=== PATIENT | female | born 1960 | race Two or more races ===

== ENCOUNTER 2020-12-01 19:25 | Inpatient (IN) | payer OTHER ==
[2020-12-01 19:00] VITALS: BP 141/101
[~2020-12-01 19:25] MED LIST: ASPI-1198 PO; ATOR40TA71 PO; BUME1TAB6 PO; FOLI-130 PO; HYDR100T28 PO; INSU100V SQ; LACT30L PO; LISI-618 PO; MEGE400O5 PO; PANT40TA54 PO; SODI650T PO
[2020-12-01 19:52] VITALS: BP 129/61
[2020-12-01] MEDS ORDERED: DiphenhydrAMINE HCL 25 MG CAPSULE PO PRN (21:15)
[2020-12-01] MEDS ORDERED: PANTOPRAZOLE SODIUM 40 MG DR TABLET PO SCH (21:15)
[2020-12-01] MEDS ORDERED: LACTULOSE 20 GM/30 ML SOLUTION UDCUP PO PRN (21:15)
[2020-12-01] MEDS ORDERED: BISACODYL 10 MG RECTAL RECTAL SUPPOSITORY PR PRN (21:15)
[2020-12-01] MEDS ORDERED: ACETAMINOPHEN 650 MG/20.3 ML SOLUTION UDCUP PO PRN (21:15)
[2020-12-01] MEDS ORDERED: MAGNESIUM HYDROXIDE SUSPENSION 30 ML UDCUP PO PRN (21:15)
[2020-12-01] MEDS ORDERED: SODIUM CHLORIDE 0.9% 500 ML IV ONE (21:49)
[2020-12-01] MEDS: NYSTATIN 500,000 UNITS/5 ML SUSPENSION UDCUP PO SCH (21:54)
[2020-12-01] MEDS: BENZOCAINE/MENTHOL LOZENGE PO PRN (21:55)
[2020-12-01] MEDS ORDERED: NAFCILLIN SODIUM 1 GM in DEXTROSE 5%-WATER 50 ML IV SCH (22:00)
[2020-12-01] MEDS ORDERED: MIRTAZAPINE 15 MG TABLET PO SCH (22:00)
[2020-12-01] MEDS: DOCUSATE SODIUM 100 MG CAPSULE PO SCH (22:28)
[2020-12-01] MEDS: TraZODone HCL 50 MG TABLET PO SCH (22:28)
[2020-12-01] MEDS: TRIAMCINOLONE 0.1% 15 GM CREAM TP SCH (22:36)
[2020-12-01] MEDS: ONDANSETRON HCL 4 MG TABLET PO PRN (22:37)
[2020-12-01] MEDS: SENNA 187 MG TABLET PO SCH (22:37)
[2020-12-02 00:55] VITALS: BP 127/72
[2020-12-02] MEDS: OxyCODONE HCL 5 MG IR TABLET PO PRN (05:10)
[2020-12-02] MEDS: BENZOCAINE/MENTHOL LOZENGE PO PRN (05:18)
[2020-12-02 08:05] VITALS: BP 142/74
[2020-12-02] MEDS: ACETAMINOPHEN 325 MG TABLET PO PRN ×3 (08:13→23:49)
[2020-12-02] MEDS: DOCUSATE SODIUM 100 MG CAPSULE PO SCH ×2 (08:14→21:00)
[2020-12-02] MEDS: TRIAMCINOLONE 0.1% 15 GM CREAM TP SCH ×2 (08:15→21:41)
[2020-12-02] MEDS: EPOETIN ALFA 10,000 UNITS/ML VIAL SQ SCH (08:15)
[2020-12-02] MEDS: CHLORHEXIDINE GLUCONATE 4% 118 ML TOPICAL LIQUID TP SCH (08:15)
[2020-12-02] MEDS: CAMPHOR/MENTHOL 222 ML LOTION TP SCH ×3 (08:15→21:41)
[2020-12-02] MEDS: NYSTATIN 500,000 UNITS/5 ML SUSPENSION UDCUP PO SCH ×2 (09:00→21:00)
[2020-12-02] MEDS ORDERED: FOLIC ACID 1 MG TABLET PO SCH (09:00)
[2020-12-02 09:18] LABS: EOSINOPHILS % (AUTO) 5.8 % (1.0-6.0); HEMATOCRIT 22.7 % (36-46); HEMOGLOBIN 7.3 g/dL (12.0-16.0); LYMPHOCYTES # (AUTO) 0.3 K/uL (1.0-4.8); LYMPHOCYTES % (AUTO) 58.9 % (22.0-44.0); MEAN CORPUSCULAR HGB CONC 32.3 G/dL (31.0-37.0); MEAN CORPUSCULAR VOLUME 81 fL (80-100); MONOCYTES % (AUTO) 0.9 % (2.0-9.0); NEUTROPHILS # (AUTO) 0.2 K/uL (1.8-7.7); NEUTROPHILS % (AUTO) 34.4 % (40.0-70.0); PLATELET COUNT (AUTO) 55 K/uL (150-450); RED BLOOD CELL COUNT(AUTO) 2.81 MIL/uL (4.00-5.20)
[2020-12-02 09:30] VITALS: BP 135/74
[2020-12-02 09:50] LABS: LACTIC ACID 0.8 mmol/L (0.4-2.0)
[2020-12-02 09:59] LABS: HEMOGLOBIN A1C 5.6 % (3.8-5.6)
[2020-12-02 10:04] LABS: ALBUMIN 1.8 g/dL (3.4-5.0); BILIRUBIN,TOTAL 0.3 mg/dL (0.1-1.0); CALCIUM, TOTAL 8.8 mg/dL (8.8-10.5); CHOL/HDL RATIO 3.3 (3.9-5.7); CREATININE 4.89 mg/dL (0.60-1.30); FREE T4 (FREE THYROXINE) 1.54 ng/dL (0.76-1.46); POTASSIUM 4.2 mmol/L (3.5-5.1); THYROID STIMULATING HORMONE 0.81 uIU/mL (0.36-3.74); TOTAL PROTEIN, SERUM 5.7 g/dL (6.4-8.2)
[2020-12-02 10:15] LABS: URIC ACID 4.6 mg/dL (2.6-7.2)
[2020-12-02] MEDS: ONDANSETRON HCL 4 MG TABLET PO PRN (10:32)
[2020-12-02] MEDS: MIDODRINE HCL 5 MG TABLET PO SCH ×3 (10:33→21:00)
[2020-12-02] MEDS: PARICALCITOL 5 MCG/1 ML VIAL IVP SCH (10:34)
[2020-12-02 12:16] VITALS: BP 140/74
[2020-12-02] MEDS ORDERED: DEXTROSE 50%-WATER 25 GM/50 ML SYRINGE IVP PRN (16:00)
[2020-12-02 16:18] VITALS: BP 118/77
[2020-12-02] MEDS ORDERED: PIPERACILLIN SODIUM/TAZOBACTAM 0.75 GM in DEXTROSE 5%-WATER 50 ML IV PRN (17:45)
[2020-12-02] MEDS: MethylPREDNISolone SOD SUCC 125 MG/2 ML VIAL IVP SCH ×2 (18:46→23:48)
[2020-12-02] MEDS: PIPERACILLIN SODIUM/TAZOBACTAM 2.25 GM in DEXTROSE 5%-WATER 50 ML IV SCH (20:01)
[2020-12-02] MEDS ORDERED: SODIUM CHLORIDE 0.9% 250 ML IV ONE (20:02)
[2020-12-02 20:12] VITALS: BP 141/76
[2020-12-02 20:14] LABS: C-REACTIVE PROTEIN QUANT 27.94 mg/dL (0.00-0.30)
[2020-12-02] MEDS: SENNA 187 MG TABLET PO SCH (21:00)
[2020-12-02] MEDS: LISINOPRIL 20 MG TABLET PO SCH (21:39)
[2020-12-02] MEDS: FLUCONAZOLE 100 MG/NACL ISOOSM 50 ML IV SCH (21:40)
[2020-12-02] MEDS: BUMETANIDE 1 MG TABLET PO SCH (21:40)
[2020-12-02] MEDS: TraZODone HCL 50 MG TABLET PO SCH (21:40)
[2020-12-02] MEDS: INSULIN REGULAR, HUMAN 100 UNITS/ML SQ PRN (21:53)
[2020-12-03 00:27] VITALS: BP 136/77
[2020-12-03 03:58] VITALS: BP 129/78
[2020-12-03] MEDS: PIPERACILLIN SODIUM/TAZOBACTAM 2.25 GM in DEXTROSE 5%-WATER 50 ML IV SCH ×3 (04:19→20:07)
[2020-12-03] MEDS: ACETAMINOPHEN 325 MG TABLET PO PRN ×4 (06:00→22:32)
[2020-12-03] MEDS: MethylPREDNISolone SOD SUCC 125 MG/2 ML VIAL IVP SCH ×3 (06:03→17:43)
[2020-12-03] MEDS: INSULIN REGULAR, HUMAN 100 UNITS/ML SQ PRN ×3 (06:04→20:13)
[2020-12-03 07:24] VITALS: BP 132/73
[2020-12-03 08:11] LABS: MEAN CORPUSCULAR HEMOGLOBIN 26.1 pg (26.0-34.0); MEAN CORPUSCULAR VOLUME 81 fL (80-100)
[2020-12-03 08:37] LABS: HEMATOCRIT 24.8 % (36-46); MEAN CORPUSCULAR HGB CONC 32.2 G/dL (31.0-37.0); PLATELET COUNT (AUTO) 34 K/uL (150-450); RED BLOOD CELL COUNT(AUTO) 3.05 MIL/uL (4.00-5.20); RED CELL DISTRIBUTION WIDTH 19.1 % (11.5-14.5)
[2020-12-03] MEDS: ASPIRIN 81 MG CHEWABLE TABLET PO SCH (09:00)
[2020-12-03] MEDS ORDERED: -POST HEMODIALYSIS NOTE- MISC SCH (09:00)
[2020-12-03] MEDS ORDERED: ATORVASTATIN CALCIUM 40 MG TABLET PO SCH (09:00)
[2020-12-03] MEDS: DOCUSATE SODIUM 100 MG CAPSULE PO SCH ×2 (09:00→20:08)
[2020-12-03] MEDS: VITAMIN B COMP/VIT C/FOLIC ACID CAPSULE PO SCH (09:35)
[2020-12-03] MEDS: FOLIC ACID 1 MG TABLET PO SCH (09:36)
[2020-12-03] MEDS: LISINOPRIL 20 MG TABLET PO SCH ×2 (09:36→20:07)
[2020-12-03] MEDS: BUMETANIDE 1 MG TABLET PO SCH ×2 (09:36→20:07)
[2020-12-03] MEDS: NYSTATIN 500,000 UNITS/5 ML SUSPENSION UDCUP PO SCH ×2 (09:36→20:07)
[2020-12-03] MEDS: CHLORHEXIDINE GLUCONATE 4% 118 ML TOPICAL LIQUID TP SCH (09:37)
[2020-12-03] MEDS: MIDODRINE HCL 5 MG TABLET PO SCH ×3 (09:37→20:07)
[2020-12-03] MEDS: CAMPHOR/MENTHOL 222 ML LOTION TP SCH ×3 (09:38→20:08)
[2020-12-03] MEDS: TRIAMCINOLONE 0.1% 15 GM CREAM TP SCH ×2 (09:38→20:09)
[2020-12-03 10:12] LABS: BAND NEUTROPHILS % (MANUAL) 2 % (0-5); LYMPHOCYTES % (MANUAL) 50 % (22-44); MONOCYTES % (MANUAL) 2 % (2-9); SEGMENTED NEUTROPHILS % 46 % (40-70)
[2020-12-03] MEDS: DOXYCYCLINE HYCLATE 100 MG in DEXTROSE 5%-WATER 100 ML IV SCH ×2 (10:59→23:56)
[2020-12-03] MEDS ORDERED: LIDOCAINE 2% VISCOUS 15 ML SOLUTION UDCUP PO PRN (11:15)
[2020-12-03 11:28] LABS: HIV 1-2 SCREEN 4TH GEN W/RFLX Non Reactive (Non Reactive)
[2020-12-03 15:07] LABS: FIBRINOGEN 860 mg/dL (200-400); INR 1.1 (0.9-1.1); PROTHROMBIN TIME 11.2 SEC (9.4-11.6)
[2020-12-03] MEDS: FILGRASTIM 480 MCG/0.8 ML SYRINGE SQ SCH (15:33)
[2020-12-03 15:56] LABS: FIBRIN SPLIT PRODUCTS GT >10 but LT <40 mcg/mL (<10)
[2020-12-03 16:00] VITALS: BP 151/83
[2020-12-03 19:52] VITALS: BP 142/84
[2020-12-03] MEDS: TraZODone HCL 50 MG TABLET PO SCH (20:07)
[2020-12-03] MEDS: SENNA 187 MG TABLET PO SCH (20:08)
[2020-12-03] MEDS: FLUCONAZOLE 100 MG/NACL ISOOSM 50 ML IV SCH (21:20)
[2020-12-04] MEDS: MethylPREDNISolone SOD SUCC 125 MG/2 ML VIAL IVP SCH ×5 (00:02→23:11)
[2020-12-04 01:02] VITALS: BP 141/83
[2020-12-04 02:24] LABS: C.DIFF GDH ANTIGEN, Stool Negative (Negative); C.DIFF TOXINS A&B, Stool Negative (Negative)
[2020-12-04] MEDS: PIPERACILLIN SODIUM/TAZOBACTAM 2.25 GM in DEXTROSE 5%-WATER 50 ML IV SCH ×2 (03:51→12:10)
[2020-12-04] MEDS: ACETAMINOPHEN 325 MG TABLET PO PRN ×2 (03:58→08:07)
[2020-12-04 04:32] VITALS: BP 140/80
[2020-12-04] MEDS: INSULIN REGULAR, HUMAN 100 UNITS/ML SQ PRN ×3 (05:56→22:22)
[2020-12-04 06:27] LABS: HEMATOCRIT 24.3 % (36-46); HEMOGLOBIN 7.8 g/dL (12.0-16.0); MEAN CORPUSCULAR HEMOGLOBIN 25.8 pg (26.0-34.0); MEAN CORPUSCULAR VOLUME 81 fL (80-100); RED CELL DISTRIBUTION WIDTH 19.4 % (11.5-14.5)
[2020-12-04 07:11] LABS: C-REACTIVE PROTEIN QUANT 24.11 mg/dL (0.00-0.30); CALCIUM, TOTAL 9.2 mg/dL (8.8-10.5); CREATININE 4.81 mg/dL (0.60-1.30); POTASSIUM 3.6 mmol/L (3.5-5.1)
[2020-12-04 07:13] LABS: PLATELET COUNT (AUTO) 17 K/uL (150-450)
[2020-12-04 07:15] LABS: BAND NEUTROPHILS % (MANUAL) 3 % (0-5); BUFFY COAT SMEAR PREP YES (NOT DONE); LYMPHOCYTES % (MANUAL) 59 % (22-44); MONOCYTES % (MANUAL) 4 % (2-9); SEGMENTED NEUTROPHILS % 34 % (40-70)
[2020-12-04] MEDS: DOCUSATE SODIUM 100 MG CAPSULE PO SCH ×2 (07:43→21:00)
[2020-12-04] MEDS: NYSTATIN 500,000 UNITS/5 ML SUSPENSION UDCUP PO SCH ×2 (08:06→21:55)
[2020-12-04] MEDS: BUMETANIDE 1 MG TABLET PO SCH ×2 (08:06→21:55)
[2020-12-04] MEDS: ASPIRIN 81 MG CHEWABLE TABLET PO SCH (08:07)
[2020-12-04] MEDS: MIDODRINE HCL 5 MG TABLET PO SCH (08:07)
[2020-12-04] MEDS: FOLIC ACID 1 MG TABLET PO SCH (08:07)
[2020-12-04] MEDS: LISINOPRIL 20 MG TABLET PO SCH (08:07)
[2020-12-04] MEDS: FILGRASTIM 480 MCG/0.8 ML SYRINGE SQ SCH (08:08)
[2020-12-04] MEDS: TRIAMCINOLONE 0.1% 15 GM CREAM TP SCH ×2 (08:09→21:31)
[2020-12-04] MEDS: CHLORHEXIDINE GLUCONATE 4% 118 ML TOPICAL LIQUID TP SCH (08:09)
[2020-12-04] MEDS: CLOBETASOL 0.05% 15 GM OINTMENT TP SCH ×2 (08:09→21:32)
[2020-12-04] MEDS: CAMPHOR/MENTHOL 222 ML LOTION TP SCH ×3 (08:09→21:31)
[2020-12-04 08:29] VITALS: BP 159/83
[2020-12-04] MEDS: DOXYCYCLINE HYCLATE 100 MG in DEXTROSE 5%-WATER 100 ML IV SCH ×2 (09:16→23:04)
[2020-12-04 11:21] VITALS: BP 138/82
[2020-12-04] MEDS: OxyCODONE HCL 5 MG IR TABLET PO PRN ×2 (12:30→17:58)
[2020-12-04 15:52] VITALS: BP 133/82
[2020-12-04] MEDS ORDERED: MIDODRINE HCL 5 MG TABLET PO PRN (16:00)
[2020-12-04 20:36] VITALS: BP 135/85
[2020-12-04] MEDS: TraZODone HCL 50 MG TABLET PO SCH (21:55)
[2020-12-04] MEDS: FLUCONAZOLE 100 MG/NACL ISOOSM 50 ML IV SCH (21:55)
[2020-12-04] MEDS: SENNA 187 MG TABLET PO SCH (21:55)
[2020-12-04] MEDS: MORPHINE SULFATE 2 MG/ML SYRINGE IVP PRN (23:11)
[2020-12-05 00:21] VITALS: BP 130/73
[2020-12-05 05:46] VITALS: BP 128/73
[2020-12-05] MEDS: MORPHINE SULFATE 2 MG/ML SYRINGE IVP PRN ×2 (06:32→17:39)
[2020-12-05] MEDS: MethylPREDNISolone SOD SUCC 125 MG/2 ML VIAL IVP SCH ×4 (06:32→23:56)
[2020-12-05 08:01] VITALS: BP 139/81
[2020-12-05] MEDS: DOCUSATE SODIUM 100 MG CAPSULE PO SCH ×2 (09:00→21:00)
[2020-12-05] MEDS: ASPIRIN 81 MG CHEWABLE TABLET PO SCH (09:32)
[2020-12-05] MEDS: FOLIC ACID 1 MG TABLET PO SCH (09:32)
[2020-12-05] MEDS: NYSTATIN 500,000 UNITS/5 ML SUSPENSION UDCUP PO SCH (09:32)
[2020-12-05] MEDS: BUMETANIDE 1 MG TABLET PO SCH ×2 (09:32→21:00)
[2020-12-05] MEDS: VITAMIN B COMP/VIT C/FOLIC ACID CAPSULE PO SCH (09:32)
[2020-12-05] MEDS: FILGRASTIM 480 MCG/0.8 ML SYRINGE SQ SCH (09:34)
[2020-12-05] MEDS: CAMPHOR/MENTHOL 222 ML LOTION TP SCH ×3 (09:42→21:28)
[2020-12-05] MEDS: CLOBETASOL 0.05% 15 GM OINTMENT TP SCH ×2 (09:42→21:28)
[2020-12-05] MEDS: CHLORHEXIDINE GLUCONATE 4% 118 ML TOPICAL LIQUID TP SCH (09:43)
[2020-12-05] MEDS: OxyCODONE HCL 5 MG IR TABLET PO PRN ×2 (09:46→21:28)
[2020-12-05] MEDS: TRIAMCINOLONE 0.1% 15 GM CREAM TP SCH (09:50)
[2020-12-05 10:13] LABS: COVID AG,FIA SOURCE NASOPHARYNGEAL
[2020-12-05] MEDS: EPOETIN ALFA 10,000 UNITS/ML VIAL SQ SCH (10:34)
[2020-12-05] MEDS: DOXYCYCLINE HYCLATE 100 MG in DEXTROSE 5%-WATER 100 ML IV SCH ×2 (10:35→23:23)
[2020-12-05 11:50] VITALS: BP 129/88
[2020-12-05] MEDS: INSULIN REGULAR, HUMAN 100 UNITS/ML SQ PRN ×2 (12:41→22:33)
[2020-12-05] MEDS: VITAMINS A & D 113 GM OINTMENT TP SCH ×2 (17:38→21:29)
[2020-12-05] MEDS: MINERAL OIL/PETROLATUM 120 GM CREAM TP SCH ×2 (17:38→21:29)
[2020-12-05] MEDS: MAALOX/LIDOCAINE/NYSTATIN SUSP 5 ML ORAL.SYG PO SCH ×2 (17:38→23:56)
[2020-12-05 18:23] LABS: GLUCOMETER DEV NAME(LOC) 5N.1B; GLUCOSE,POINT OF CARE 381 MG/DL (70-110)
[2020-12-05 20:33] VITALS: BP 105/66
[2020-12-05] MEDS: FLUCONAZOLE 100 MG/NACL ISOOSM 50 ML IV SCH (21:27)
[2020-12-05] MEDS: TraZODone HCL 50 MG TABLET PO SCH (21:27)
[2020-12-05] MEDS: SENNA 187 MG TABLET PO SCH (21:27)
[2020-12-05] MEDS ORDERED: SODIUM CHLORIDE 0.9% 500 ML IV ONE (22:04)
[2020-12-06 00:58] VITALS: BP 124/70
[2020-12-06 05:23] VITALS: BP 137/70
[2020-12-06] MEDS: MORPHINE SULFATE 2 MG/ML SYRINGE IVP PRN ×3 (05:27→18:30)
[2020-12-06] MEDS: INSULIN REGULAR, HUMAN 100 UNITS/ML SQ PRN ×4 (06:16→23:59)
[2020-12-06] MEDS: MethylPREDNISolone SOD SUCC 125 MG/2 ML VIAL IVP SCH ×4 (06:16→23:59)
[2020-12-06 07:27] VITALS: BP 114/77
[2020-12-06] MEDS: OxyCODONE HCL 5 MG IR TABLET PO PRN ×2 (08:12→17:12)
[2020-12-06] MEDS: ASPIRIN 81 MG CHEWABLE TABLET PO SCH (08:13)
[2020-12-06] MEDS: FOLIC ACID 1 MG TABLET PO SCH (08:13)
[2020-12-06] MEDS: CHLORHEXIDINE GLUCONATE 4% 118 ML TOPICAL LIQUID TP SCH (08:14)
[2020-12-06] MEDS: BUMETANIDE 1 MG TABLET PO SCH ×2 (08:14→21:34)
[2020-12-06] MEDS: MAALOX/LIDOCAINE/NYSTATIN SUSP 5 ML ORAL.SYG PO SCH ×3 (08:14→23:58)
[2020-12-06] MEDS: CLOBETASOL 0.05% 15 GM OINTMENT TP SCH ×2 (08:15→21:38)
[2020-12-06] MEDS: MINERAL OIL/PETROLATUM 120 GM CREAM TP SCH ×3 (08:16→21:34)
[2020-12-06] MEDS: DOCUSATE SODIUM 100 MG CAPSULE PO SCH ×2 (08:17→21:00)
[2020-12-06] MEDS: VITAMINS A & D 113 GM OINTMENT TP SCH ×3 (08:17→21:35)
[2020-12-06] MEDS: CAMPHOR/MENTHOL 222 ML LOTION TP SCH ×3 (08:20→21:36)
[2020-12-06] MEDS: DOXYCYCLINE HYCLATE 100 MG in DEXTROSE 5%-WATER 100 ML IV SCH (10:23)
[2020-12-06] MEDS: FILGRASTIM 480 MCG/0.8 ML SYRINGE SQ SCH (10:23)
[2020-12-06 11:16] VITALS: BP 109/72
[2020-12-06] MEDS ORDERED: SODIUM CHLORIDE 0.9% 2,000 ML ONE (12:18)
[2020-12-06] MEDS: MIDODRINE HCL 5 MG TABLET PO PRN (14:13)
[2020-12-06 16:07] VITALS: BP 101/71
[2020-12-06 20:38] VITALS: BP_SYST 132; BP_SYST 149; BP_DIAS 72; BP_DIAS 89
[2020-12-06] MEDS: SENNA 187 MG TABLET PO SCH (21:00)
[2020-12-06] MEDS: ACETAMINOPHEN 325 MG TABLET PO PRN (21:33)
[2020-12-06] MEDS: LACTOBACILLUS ACIDOPHILUS/BULGARICUS GRANULES PACKET GT SCH (21:33)
[2020-12-06] MEDS: TraZODone HCL 50 MG TABLET PO SCH (21:34)
[2020-12-07] VITALS (14 sets, daily range): BP systolic 100–136; BP diastolic 57–81
[2020-12-07] MEDS: OxyCODONE HCL 5 MG IR TABLET PO PRN ×3 (00:13→22:05)
[2020-12-07] MEDS: MethylPREDNISolone SOD SUCC 125 MG/2 ML VIAL IVP SCH ×3 (06:44→17:10)
[2020-12-07 07:30] LABS: ALBUMIN 1.5 g/dL (3.4-5.0); BILIRUBIN,TOTAL 0.4 mg/dL (0.1-1.0); CALCIUM, TOTAL 8.6 mg/dL (8.8-10.5); CREATININE 2.63 mg/dL (0.60-1.30); TOTAL PROTEIN, SERUM 4.6 g/dL (6.4-8.2)
[2020-12-07 07:33] LABS: HEMATOCRIT 21.3 % (36-46); MEAN CORPUSCULAR HEMOGLOBIN 25.3 pg (26.0-34.0); MEAN CORPUSCULAR HGB CONC 31.5 G/dL (31.0-37.0); MEAN CORPUSCULAR VOLUME 81 fL (80-100); RED BLOOD CELL COUNT(AUTO) 2.65 MIL/uL (4.00-5.20); RED CELL DISTRIBUTION WIDTH 19.2 % (11.5-14.5)
[2020-12-07 07:38] LABS: HEMOGLOBIN 6.7 g/dL (12.0-16.0); PLATELET COUNT (AUTO) 10 K/uL (150-450)
[2020-12-07 07:57] LABS: C-REACTIVE PROTEIN QUANT 28.55 mg/dL (0.00-0.30)
[2020-12-07] MEDS ORDERED: DiphenhydrAMINE HCL 50 MG/ML VIAL IVP ONE (08:00)
[2020-12-07] MEDS: MORPHINE SULFATE 2 MG/ML SYRINGE IVP PRN ×2 (08:29→15:43)
[2020-12-07] MEDS: DOCUSATE SODIUM 100 MG CAPSULE PO SCH ×2 (09:00→21:00)
[2020-12-07] MEDS: PARICALCITOL 5 MCG/1 ML VIAL IVP SCH (09:00)
[2020-12-07] MEDS: VITAMIN B COMP/VIT C/FOLIC ACID CAPSULE PO SCH (09:26)
[2020-12-07] MEDS: MAALOX/LIDOCAINE/NYSTATIN SUSP 5 ML ORAL.SYG PO SCH ×2 (09:26→16:41)
[2020-12-07] MEDS: BUMETANIDE 1 MG TABLET PO SCH ×2 (09:26→22:05)
[2020-12-07] MEDS: FOLIC ACID 1 MG TABLET PO SCH (09:26)
[2020-12-07] MEDS: LACTOBACILLUS ACIDOPHILUS/BULGARICUS GRANULES PACKET GT SCH ×2 (09:26→22:05)
[2020-12-07] MEDS: CLOBETASOL 0.05% 15 GM OINTMENT TP SCH ×2 (09:27→22:06)
[2020-12-07] MEDS: VITAMINS A & D 113 GM OINTMENT TP SCH ×3 (09:27→22:06)
[2020-12-07] MEDS: FILGRASTIM 480 MCG/0.8 ML SYRINGE SQ SCH (09:27)
[2020-12-07] MEDS: MINERAL OIL/PETROLATUM 120 GM CREAM TP SCH ×3 (09:28→22:06)
[2020-12-07] MEDS: CAMPHOR/MENTHOL 222 ML LOTION TP SCH ×3 (09:28→22:06)
[2020-12-07] MEDS: CHLORHEXIDINE GLUCONATE 4% 118 ML TOPICAL LIQUID TP SCH (09:28)
[2020-12-07] MEDS: EPOETIN ALFA 10,000 UNITS/ML VIAL SQ SCH (09:29)
[2020-12-07] MEDS: INSULIN REGULAR, HUMAN 100 UNITS/ML SQ PRN ×2 (11:47→17:09)
[2020-12-07] MEDS ORDERED: SODIUM CHLORIDE 0.9% 0 ML ONE (13:28)
[2020-12-07] MEDS ORDERED: SODIUM CHLORIDE 0.9% 500 ML IV ONE (13:29)
[2020-12-07 14:15] LABS: BAND NEUTROPHILS % (MANUAL) 5 % (0-5); BUFFY COAT SMEAR PREP YES (NOT DONE); LYMPHOCYTES % (MANUAL) 60 % (22-44); MONOCYTES % (MANUAL) 12 % (2-9); SEGMENTED NEUTROPHILS % 23 % (40-70)
[2020-12-07 20:52] LABS: GLUCOMETER DEV NAME(LOC) 5S.1; GLUCOSE,POINT OF CARE 244 MG/DL (70-110)
[2020-12-07 20:52] LABS: GLUCOMETER DEV NAME(LOC) 5S.1; GLUCOSE,POINT OF CARE 210 MG/DL (70-110)
[2020-12-07 20:52] LABS: GLUCOMETER DEV NAME(LOC) 5S.1; GLUCOSE,POINT OF CARE 240 MG/DL (70-110)
[2020-12-07 20:53] LABS: GLUCOMETER DEV NAME(LOC) 5S.1; GLUCOSE,POINT OF CARE 300 MG/DL (70-110)
[2020-12-07 20:53] LABS: GLUCOMETER DEV NAME(LOC) 5S.1; GLUCOSE,POINT OF CARE 265 MG/DL (70-110)
[2020-12-07 20:54] LABS: GLUCOMETER DEV NAME(LOC) 5S.1; GLUCOSE,POINT OF CARE 300 MG/DL (70-110)
[2020-12-07 20:54] LABS: GLUCOMETER DEV NAME(LOC) 5S.1; GLUCOSE,POINT OF CARE 195 MG/DL (70-110)
[2020-12-07 20:54] LABS: GLUCOMETER DEV NAME(LOC) 5S.1; GLUCOSE,POINT OF CARE 302 MG/DL (70-110)
[2020-12-07] MEDS: SENNA 187 MG TABLET PO SCH (21:00)
[2020-12-07] MEDS: TraZODone HCL 50 MG TABLET PO SCH (22:05)
[2020-12-08 00:20] VITALS: BP 130/77
[2020-12-08] MEDS: INSULIN REGULAR, HUMAN 100 UNITS/ML SQ PRN ×5 (00:32→21:01)
[2020-12-08] MEDS: MORPHINE SULFATE 2 MG/ML SYRINGE IVP PRN ×4 (00:32→23:43)
[2020-12-08] MEDS: MAALOX/LIDOCAINE/NYSTATIN SUSP 5 ML ORAL.SYG PO SCH ×4 (00:33→23:42)
[2020-12-08] MEDS: MethylPREDNISolone SOD SUCC 125 MG/2 ML VIAL IVP SCH ×4 (00:33→23:43)
[2020-12-08 02:49] LABS: GLUCOMETER DEV NAME(LOC) 5S.1; GLUCOSE,POINT OF CARE 342 MG/DL (70-110)
[2020-12-08 05:20] VITALS: BP 113/72
[2020-12-08 08:01] LABS: CALCIUM, TOTAL 8.7 mg/dL (8.8-10.5); CREATININE 2.52 mg/dL (0.60-1.30); POTASSIUM 3.1 mmol/L (3.5-5.1)
[2020-12-08 08:14] LABS: HEMATOCRIT 24.2 % (36-46); HEMOGLOBIN 8.2 g/dL (12.0-16.0); MEAN CORPUSCULAR HEMOGLOBIN 27.6 pg (26.0-34.0); MEAN CORPUSCULAR HGB CONC 33.9 G/dL (31.0-37.0); MEAN CORPUSCULAR VOLUME 82 fL (80-100); RED BLOOD CELL COUNT(AUTO) 2.97 MIL/uL (4.00-5.20); RED CELL DISTRIBUTION WIDTH 18.2 % (11.5-14.5)
[2020-12-08 08:22] LABS: PLATELET COUNT (AUTO) 13 K/uL (150-450)
[2020-12-08] MEDS: DOCUSATE SODIUM 100 MG CAPSULE PO SCH ×2 (09:00→20:15)
[2020-12-08] MEDS: CHLORHEXIDINE GLUCONATE 4% 118 ML TOPICAL LIQUID TP SCH (09:00)
[2020-12-08 09:08] LABS: BAND NEUTROPHILS % (MANUAL) 16 % (0-5); LYMPHOCYTES % (MANUAL) 50 % (22-44); METAMYELOCYTES % 2 % (0-0); MONOCYTES % (MANUAL) 10 % (2-9); MYELOCYTES % 1 % (0-0); SEGMENTED NEUTROPHILS % 21 % (40-70)
[2020-12-08] MEDS: FOLIC ACID 1 MG TABLET PO SCH (09:35)
[2020-12-08] MEDS: LACTOBACILLUS ACIDOPHILUS/BULGARICUS GRANULES PACKET GT SCH ×2 (09:35→22:31)
[2020-12-08] MEDS: BUMETANIDE 1 MG TABLET PO SCH ×2 (09:35→20:15)
[2020-12-08] MEDS: CLOBETASOL 0.05% 15 GM OINTMENT TP SCH ×2 (09:36→23:38)
[2020-12-08] MEDS: MINERAL OIL/PETROLATUM 120 GM CREAM TP SCH ×3 (09:36→23:38)
[2020-12-08] MEDS: CAMPHOR/MENTHOL 222 ML LOTION TP SCH ×3 (09:36→23:37)
[2020-12-08] MEDS: VITAMINS A & D 113 GM OINTMENT TP SCH ×3 (09:37→23:39)
[2020-12-08 09:38] VITALS: BP 118/71
[2020-12-08] MEDS: FILGRASTIM 480 MCG/0.8 ML SYRINGE SQ SCH (09:44)
[2020-12-08] MEDS ORDERED: DiphenhydrAMINE HCL 50 MG/ML VIAL IVP ONE (11:00)
[2020-12-08] MEDS ORDERED: ALBUMIN HUMAN 25%-12.5GM/50ML 100 ML IV ONE (11:15)
[2020-12-08] MEDS ORDERED: SODIUM CHLORIDE 0.9% 2,000 ML ONE (11:31)
[2020-12-08 12:07] LABS: GLUCOMETER DEV NAME(LOC) 5S.2B; GLUCOSE,POINT OF CARE 234 MG/DL (70-110)
[2020-12-08 12:08] LABS: GLUCOMETER DEV NAME(LOC) 5S.2B; GLUCOSE,POINT OF CARE 246 MG/DL (70-110)
[2020-12-08 12:08] LABS: GLUCOMETER DEV NAME(LOC) 5S.2B; GLUCOSE,POINT OF CARE 286 MG/DL (70-110)
[2020-12-08 12:08] LABS: GLUCOMETER DEV NAME(LOC) 5S.2B; GLUCOSE,POINT OF CARE 266 MG/DL (70-110)
[2020-12-08 12:09] LABS: GLUCOMETER DEV NAME(LOC) 5S.2B; GLUCOSE,POINT OF CARE 362 MG/DL (70-110)
[2020-12-08 12:09] LABS: GLUCOMETER DEV NAME(LOC) 5S.2B; GLUCOSE,POINT OF CARE 281 MG/DL (70-110)
[2020-12-08 12:09] LABS: GLUCOMETER DEV NAME(LOC) 5S.2B; GLUCOSE,POINT OF CARE 276 MG/DL (70-110)
[2020-12-08 12:09] LABS: GLUCOMETER DEV NAME(LOC) 5S.2B; GLUCOSE,POINT OF CARE 188 MG/DL (70-110)
[2020-12-08 12:09] LABS: GLUCOMETER DEV NAME(LOC) 5S.2B; GLUCOSE,POINT OF CARE 326 MG/DL (70-110)
[2020-12-08 12:10] LABS: GLUCOMETER DEV NAME(LOC) 5S.2B; GLUCOSE,POINT OF CARE 273 MG/DL (70-110)
[2020-12-08] MEDS ORDERED: ALBUMIN HUMAN 25%-25GM/100ML 100 ML IV ONE (12:15)
[2020-12-08] MEDS: PARICALCITOL 5 MCG/1 ML VIAL IVP SCH (12:49)
[2020-12-08] MEDS: MIDODRINE HCL 5 MG TABLET PO PRN (12:51)
[2020-12-08] MEDS: ACETAMINOPHEN 325 MG TABLET PO PRN (16:04)
[2020-12-08 16:59] LABS: GLUCOMETER DEV NAME(LOC) 5S.2B; GLUCOSE,POINT OF CARE 298 MG/DL (70-110)
[2020-12-08 17:17] VITALS: BP 125/66
[2020-12-08] MEDS: OxyCODONE HCL 5 MG IR TABLET PO PRN ×2 (17:55→22:20)
[2020-12-08 20:02] VITALS: BP 116/70
[2020-12-08] MEDS: TraZODone HCL 50 MG TABLET PO SCH (20:15)
[2020-12-08] MEDS: SENNA 187 MG TABLET PO SCH (20:16)
[2020-12-08 21:40] LABS: GLUCOMETER DEV NAME(LOC) 5S.2B; GLUCOSE,POINT OF CARE 276 MG/DL (70-110)
[2020-12-08 21:41] LABS: GLUCOMETER DEV NAME(LOC) 5S.2B; GLUCOSE,POINT OF CARE 260 MG/DL (70-110)
[2020-12-09 00:34] VITALS: BP 122/73
[2020-12-09] MEDS: ACETAMINOPHEN 325 MG TABLET PO PRN ×2 (01:10→14:14)
[2020-12-09 04:12] VITALS: BP 132/67
[2020-12-09] MEDS: OxyCODONE HCL 5 MG IR TABLET PO PRN ×4 (05:35→23:11)
[2020-12-09] MEDS: MethylPREDNISolone SOD SUCC 125 MG/2 ML VIAL IVP SCH ×6 (05:37→23:11)
[2020-12-09] MEDS: INSULIN REGULAR, HUMAN 100 UNITS/ML SQ PRN ×4 (05:44→21:58)
[2020-12-09 07:18] VITALS: BP 125/75
[2020-12-09] MEDS: DOCUSATE SODIUM 100 MG CAPSULE PO SCH ×3 (08:01→19:54)
[2020-12-09] MEDS: LACTOBACILLUS ACIDOPHILUS/BULGARICUS GRANULES PACKET GT SCH ×2 (08:01→19:54)
[2020-12-09] MEDS: VITAMIN B COMP/VIT C/FOLIC ACID CAPSULE PO SCH ×2 (08:02→08:14)
[2020-12-09] MEDS: BUMETANIDE 1 MG TABLET PO SCH ×2 (08:02→19:54)
[2020-12-09] MEDS: FOLIC ACID 1 MG TABLET PO SCH (08:02)
[2020-12-09] MEDS: MAALOX/LIDOCAINE/NYSTATIN SUSP 5 ML ORAL.SYG PO SCH ×3 (08:04→21:00)
[2020-12-09] MEDS: EPOETIN ALFA 10,000 UNITS/ML VIAL SQ SCH (08:34)
[2020-12-09] MEDS: FILGRASTIM 480 MCG/0.8 ML SYRINGE SQ SCH (08:37)
[2020-12-09] MEDS: MINERAL OIL/PETROLATUM 120 GM CREAM TP SCH ×3 (10:23→19:56)
[2020-12-09] MEDS: VITAMINS A & D 113 GM OINTMENT TP SCH ×3 (10:23→19:55)
[2020-12-09] MEDS: CLOBETASOL 0.05% 15 GM OINTMENT TP SCH ×2 (10:23→19:56)
[2020-12-09] MEDS: CAMPHOR/MENTHOL 222 ML LOTION TP SCH ×3 (10:24→20:12)
[2020-12-09] MEDS: CHLORHEXIDINE GLUCONATE 4% 118 ML TOPICAL LIQUID TP SCH (10:25)
[2020-12-09 11:33] VITALS: BP 97/56
[2020-12-09] MEDS ORDERED: SODIUM CHLORIDE 0.9% IRRIG BTL 1,000 ML IRRIG ONE (13:50)
[2020-12-09 14:10] LABS: GLUCOMETER DEV NAME(LOC) 5S.1; GLUCOSE,POINT OF CARE 197 MG/DL (70-110)
[2020-12-09 14:10] LABS: GLUCOMETER DEV NAME(LOC) 5S.1; GLUCOSE,POINT OF CARE 298 MG/DL (70-110)
[2020-12-09 15:58] LABS: HEMOGLOBIN 7.8 g/dL (12.0-16.0); MEAN CORPUSCULAR HEMOGLOBIN 25.3 pg (26.0-34.0); MEAN CORPUSCULAR HGB CONC 31.3 G/dL (31.0-37.0); MEAN CORPUSCULAR VOLUME 81 fL (80-100); RED BLOOD CELL COUNT(AUTO) 3.09 MIL/uL (4.00-5.20); RED CELL DISTRIBUTION WIDTH 18.6 % (11.5-14.5)
[2020-12-09 16:09] VITALS: BP 128/81
[2020-12-09 17:47] LABS: PATHOLOGY REVIEW, DIFF YES; PLATELET COUNT (AUTO) 42 K/uL (150-450)
[2020-12-09 18:16] LABS: GLUCOMETER DEV NAME(LOC) 5S.2B; GLUCOSE,POINT OF CARE 276 MG/DL (70-110)
[2020-12-09 19:25] VITALS: BP 139/78
[2020-12-09] MEDS: TraZODone HCL 50 MG TABLET PO SCH (19:54)
[2020-12-09] MEDS: SENNA 187 MG TABLET PO SCH (19:54)
[2020-12-09] MEDS: MORPHINE SULFATE 2 MG/ML SYRINGE IVP PRN (20:06)
[2020-12-09 22:05] LABS: GLUCOMETER DEV NAME(LOC) 5S.1; GLUCOSE,POINT OF CARE 287 MG/DL (70-110)
[2020-12-09] MEDS ORDERED: INSULIN LISPRO 100 UNITS/ML SQ PRN (23:00)
[2020-12-09] MEDS ORDERED: DEXTROSE 50%-WATER 25 GM/50 ML SYRINGE IVP PRN (23:00)
[2020-12-10 00:18] VITALS: BP 141/71
[2020-12-10] MEDS: OxyCODONE HCL 5 MG IR TABLET PO PRN ×2 (03:42→10:09)
[2020-12-10 04:06] VITALS: BP 128/71
[2020-12-10] MEDS: MethylPREDNISolone SOD SUCC 125 MG/2 ML VIAL IVP SCH ×4 (05:16→23:48)
[2020-12-10 05:22] LABS: GLUCOMETER DEV NAME(LOC) 5S.1; GLUCOSE,POINT OF CARE 308 MG/DL (70-110)
[2020-12-10 06:18] LABS: HEMATOCRIT 22.8 % (36-46); MEAN CORPUSCULAR HEMOGLOBIN 25.4 pg (26.0-34.0); MEAN CORPUSCULAR HGB CONC 30.8 G/dL (31.0-37.0); MEAN CORPUSCULAR VOLUME 82 fL (80-100); PLATELET COUNT (AUTO) 58 K/uL (150-450); RED BLOOD CELL COUNT(AUTO) 2.77 MIL/uL (4.00-5.20); RED CELL DISTRIBUTION WIDTH 18.8 % (11.5-14.5)
[2020-12-10 07:54] VITALS: BP 125/75
[2020-12-10 07:58] LABS: BAND NEUTROPHILS % (MANUAL) 29 % (0-5); LYMPHOCYTES % (MANUAL) 4 % (22-44); METAMYELOCYTES % 3 % (0-0); MYELOCYTES % 1 % (0-0); SEGMENTED NEUTROPHILS % 63 % (40-70)
[2020-12-10] MEDS: LACTOBACILLUS ACIDOPHILUS/BULGARICUS GRANULES PACKET GT SCH ×2 (08:45→20:36)
[2020-12-10] MEDS: BUMETANIDE 1 MG TABLET PO SCH ×2 (08:45→20:33)
[2020-12-10] MEDS: DOCUSATE SODIUM 100 MG CAPSULE PO SCH ×2 (08:45→20:34)
[2020-12-10] MEDS: MAALOX/LIDOCAINE/NYSTATIN SUSP 5 ML ORAL.SYG PO SCH ×3 (08:45→20:33)
[2020-12-10] MEDS: FOLIC ACID 1 MG TABLET PO SCH (08:45)
[2020-12-10] MEDS: MINERAL OIL/PETROLATUM 120 GM CREAM TP SCH ×3 (08:46→20:36)
[2020-12-10] MEDS: VITAMINS A & D 113 GM OINTMENT TP SCH ×3 (08:46→20:36)
[2020-12-10] MEDS: CHLORHEXIDINE GLUCONATE 4% 118 ML TOPICAL LIQUID TP SCH (08:47)
[2020-12-10] MEDS: CAMPHOR/MENTHOL 222 ML LOTION TP SCH ×3 (08:47→20:36)
[2020-12-10] MEDS: CLOBETASOL 0.05% 15 GM OINTMENT TP SCH ×2 (08:47→20:36)
[2020-12-10 11:42] VITALS: BP 128/77
[2020-12-10] MEDS: MORPHINE SULFATE 2 MG/ML SYRINGE IVP PRN ×2 (11:49→20:35)
[2020-12-10] MEDS ORDERED: DEXTROSE 50%-WATER 25 GM/50 ML SYRINGE IVP PRN (12:15)
[2020-12-10] MEDS: INSULIN LISPRO 100 UNITS/ML SQ PRN ×3 (12:22→20:52)
[2020-12-10 13:36] LABS: GLUCOMETER DEV NAME(LOC) 5S.1; GLUCOSE,POINT OF CARE 405 MG/DL (70-110)
[2020-12-10 15:21] VITALS: BP 132/73
[2020-12-10 20:04] VITALS: BP 143/79
[2020-12-10 20:27] LABS: GLUCOMETER DEV NAME(LOC) 5S.2B; GLUCOSE,POINT OF CARE 297 MG/DL (70-110)
[2020-12-10] MEDS: SENNA 187 MG TABLET PO SCH (20:33)
[2020-12-10] MEDS: TraZODone HCL 50 MG TABLET PO SCH (20:33)
[2020-12-11 00:24] VITALS: BP 136/80
[2020-12-11 02:55] LABS: GLUCOMETER DEV NAME(LOC) 5S.1; GLUCOSE,POINT OF CARE 297 MG/DL (70-110)
[2020-12-11 04:05] VITALS: BP 145/79
[2020-12-11] MEDS: MORPHINE SULFATE 2 MG/ML SYRINGE IVP PRN ×3 (05:22→19:58)
[2020-12-11] MEDS: MethylPREDNISolone SOD SUCC 125 MG/2 ML VIAL IVP SCH ×3 (05:22→19:58)
[2020-12-11] MEDS: INSULIN LISPRO 100 UNITS/ML SQ PRN ×3 (05:27→17:32)
[2020-12-11 06:13] LABS: HEMATOCRIT 22.8 % (36-46); MEAN CORPUSCULAR HGB CONC 30.6 G/dL (31.0-37.0); MEAN CORPUSCULAR VOLUME 82 fL (80-100); PLATELET COUNT (AUTO) 69 K/uL (150-450); RED BLOOD CELL COUNT(AUTO) 2.78 MIL/uL (4.00-5.20); RED CELL DISTRIBUTION WIDTH 19.6 % (11.5-14.5)
[2020-12-11 06:39] LABS: CALCIUM, TOTAL 8.4 mg/dL (8.8-10.5); CREATININE 3.96 mg/dL (0.60-1.30)
[2020-12-11 07:37] VITALS: BP 134/70
[2020-12-11 08:03] LABS: GLUCOMETER DEV NAME(LOC) 5S.1; GLUCOSE,POINT OF CARE 261 MG/DL (70-110)
[2020-12-11] MEDS: LACTOBACILLUS ACIDOPHILUS/BULGARICUS GRANULES PACKET GT SCH (08:51)
[2020-12-11] MEDS: DOCUSATE SODIUM 100 MG CAPSULE PO SCH (08:51)
[2020-12-11] MEDS: MAALOX/LIDOCAINE/NYSTATIN SUSP 5 ML ORAL.SYG PO SCH ×2 (08:51→17:31)
[2020-12-11] MEDS: VITAMIN B COMP/VIT C/FOLIC ACID CAPSULE PO SCH (08:51)
[2020-12-11] MEDS: FOLIC ACID 1 MG TABLET PO SCH (08:51)
[2020-12-11] MEDS: BUMETANIDE 1 MG TABLET PO SCH (08:51)
[2020-12-11] MEDS: CAMPHOR/MENTHOL 222 ML LOTION TP SCH ×2 (08:52→17:30)
[2020-12-11] MEDS: VITAMINS A & D 113 GM OINTMENT TP SCH ×2 (08:55→17:30)
[2020-12-11] MEDS: CLOBETASOL 0.05% 15 GM OINTMENT TP SCH (08:56)
[2020-12-11] MEDS: MINERAL OIL/PETROLATUM 120 GM CREAM TP SCH ×2 (08:56→17:30)
[2020-12-11] MEDS: CHLORHEXIDINE GLUCONATE 4% 118 ML TOPICAL LIQUID TP SCH (08:56)
[2020-12-11 08:59] LABS: BAND NEUTROPHILS % (MANUAL) 30 % (0-5); LYMPHOCYTES % (MANUAL) 4 % (22-44); METAMYELOCYTES % 8 % (0-0); MONOCYTES % (MANUAL) 2 % (2-9); MYELOCYTES % 9 % (0-0); SEGMENTED NEUTROPHILS % 47 % (40-70)
[2020-12-11 09:00] LABS: WBC MORPHOLOGY TOXIC GRANULATION
[2020-12-11 11:23] VITALS: BP 137/84
[2020-12-11 13:12] LABS: BAND NEUTROPHILS % (MANUAL) 50 % (0-5); BASOPHILS % (MANUAL) 0 % (0-2); BLASTS, MANUAL % 0 (0-0); EOSINOPHILS % (MANUAL) 0 % (1-6); LYMPHOCYTES % (MANUAL) 5 % (22-44); METAMYELOCYTES % 3 % (0-0); MONOCYTES % (MANUAL) 3 % (2-9); MYELOCYTES % 9 % (0-0); OTHER CELLS,MANUAL % 0 (0-0); PROMYELOCYTES % 0 (0-0); REACTIVE LYMPHOCYTES 0 % (0-0); SEGMENTED NEUTROPHILS % 32 % (40-70)
[2020-12-11 15:21] VITALS: BP 146/81
[2020-12-11 17:06] LABS: QUANTIFERON, TB GOLD PLUS Indeterminate (Negative)
[2020-12-11] MEDS ORDERED: HEPARIN SODIUM,PORCINE 1,000 UNITS/ML VIAL ONE (17:54)
[2020-12-11 19:28] VITALS: BP 145/87
[2020-12-11 20:05] LABS: GLUCOMETER DEV NAME(LOC) 5S.2B; GLUCOSE,POINT OF CARE 334 MG/DL (70-110)
[2020-12-11 20:05] LABS: GLUCOMETER DEV NAME(LOC) 5S.2B; GLUCOSE,POINT OF CARE 301 MG/DL (70-110)
== END 2020-12-11 20:00 | disposition short-term general hospital (02) | DRG 595 ==
LOC: 4E 19:25 → 5S 12-02 15:00
PROVIDERS: ADMIT Internal Medicine Geriatric Medicine; ATTEND Internal Medicine Geriatric Medicine
PROC: 30233N1 Transfusion of Nonautologous Red Blood Cells into Peripheral Vein, Percutaneous Approach (ICD-10-PCS; principal; 2020-12-07)
DX: L51.1 Stevens-Johnson syndrome (principal); N18.6 End stage renal disease; E43 Unspecified severe protein-calorie malnutrition; D61.818 Other pancytopenia; A04.72 Enterocolitis due to Clostridium difficile, not specified as recurrent; L03.90 Cellulitis, unspecified; G81.91 Hemiplegia, unspecified affecting right dominant side; I12.0 Hypertensive chronic kidney disease with stage 5 chronic kidney disease or end stage renal disease; L51.2 Toxic epidermal necrolysis [Lyell]; B19.20 Unspecified viral hepatitis C without hepatic coma; G35 Multiple sclerosis; Z86.73 Personal history of transient ischemic attack (TIA), and cerebral infarction without residual deficits; L30.9 Dermatitis, unspecified; M06.9 Rheumatoid arthritis, unspecified; D63.1 Anemia in chronic kidney disease; D72.10 Eosinophilia, unspecified; E11.22 Type 2 diabetes mellitus with diabetic chronic kidney disease; E78.5 Hyperlipidemia, unspecified; F32.9 Major depressive disorder, single episode, unspecified; H54.61 Unqualified visual loss, right eye, normal vision left eye; H91.91 Unspecified hearing loss, right ear; E87.70 Fluid overload, unspecified; E87.6 Hypokalemia; K21.9 Gastro-esophageal reflux disease without esophagitis; Z20.822 Contact with and (suspected) exposure to COVID-19; I95.9 Hypotension, unspecified; R13.10 Dysphagia, unspecified; Z99.2 Dependence on renal dialysis; Z93.1 Gastrostomy status; Z74.01 Bed confinement status; Z88.2 Allergy status to sulfonamides
CPT/HCPCS: 74018; 74176; 82607; 82728; 83036; 83605; 83615; 83735; 84132; 84439; 84443; 84550; 85007; 85009; 85045; 85362; 85379; 85384; 86140; 86308; 86480; 86635; 86663; 86665; 86738; 86850; 86900; 86901; 86923; 87040; 87081; 87324; 87340; 87389; 87426; 87449; 87522; 87902; 92610; A9575; G0378; J0885; J1200; J1450; J1644; J2270; J2501; J2543; J2930; J3490; J7030; J7040; J7050; J7060; P9016; P9046; Q0162; 36415-L1; 36415-TC; 71045-TC; 80061-TC

== ENCOUNTER → 2021-12-21 | Outpatient (CLI) | payer MEDICARE, OTHER ==
[~2021-12-21] MED LIST changes: -LISI-618 PO; +LISI20TA24 PO
== END | disposition home or self-care (01) ==
LOC: RADPV 08:40
PROVIDERS: ATTEND Radiology Vascular & Interventional Radiology
DX: N18.6 End stage renal disease (principal)
CPT/HCPCS: 93970